=== PATIENT | female | born 1965 | race Caucasian/White ===

== ENCOUNTER 2017-07-25 09:28 | Observation (INO) ==
[2017-07-25] MEDS ORDERED: MIDAZOLAM 2mg/2ml INJECTION IVP ONE (09:52)
[2017-07-25] MEDS ORDERED: FentaNYL 100 MCG/2 ML INJECTION IVP ONE (09:52)
[2017-07-25 10:10] VITALS: BMI 33.2
[2017-07-25] MEDS ORDERED: SALINE FLUSH 10ml SYRINGE IV PRN (10:11)
--- NOTE | 2017-07-25 11:05 | XRay Report ---
Indication: afib PROCEDURE: XR chest 1V: Encounter: Initial Comparison: None. Findings: There is mild prominence the cardiac silhouette that is probably situated by the AP portable technique. There is moderate overlying EKG lead artifact. The lungs are clear. There is no focal opacity to suggest atelectasis or pneumonia. No mediastinal or hilar adenopathy. No pleural effusion. There is no significant tortuosity of the descending thoracic aorta. There is no significant degenerative changes of the thoracic spine. IMPRESSION: No acute process. .
[2017-07-25] MEDS ORDERED: SALINE FLUSH 10ml SYRINGE ONE (12:22)
[2017-07-25] MEDS ORDERED: FLECAINIDE 100 MG TABLET PO ONE (18:00)
[2017-07-25] MEDS: RIVAROXABAN 20 MG TABLET PO SCH (18:45)
[2017-07-25] MEDS: NS 1,000 ML IV SCH (23:48)
[2017-07-26] MEDS: ONDANSETRON 4 MG/2 ML INJECTION IVP PRN ×2 (00:10→08:26)
[2017-07-26] MEDS ORDERED: ZOLPIDEM 5 MG TABLET PO PRN (00:52)
[2017-07-26] MEDS ORDERED: ACETAMINOPHEN 325 MG TABLET PO PRN (00:53)
[2017-07-26] MEDS: NS 1,000 ML IV SCH ×3 (01:03→11:36)
[2017-07-26] MEDS ORDERED: RIVAROXABAN 20 MG TABLET PO SCH (09:00)
[2017-07-26] MEDS ORDERED: FLECAINIDE 50 MG TABLET PO SCH (09:00)
--- NOTE | 2017-07-26 09:47 | Transesophageal Echocardiogram ---
DATE OF PROCEDURE July 25, 2017 The patient is a 51-year-old lady who was admitted with symptomatic atrial fibrillation and was referred for further evaluation by transesophageal echocardiogram to rule out intracardiac thrombus or mass prior to cardioversion. Informed consent was obtained after explaining the procedure and the potential risks to the patient who agreed to proceed with the procedure. PROCEDURE 1. Transesophageal echocardiogram. Conscious sedation was performed using Versed and fentanyl. Cetacaine spray was used for pharyngeal anesthesia. Probe was advanced into the esophagus and stomach and images were obtained in multiple planes. Left atrium is normal. Left ventricular end-diastolic dimension is normal. Left ventricular wall thickness is normal. LV systolic function is normal with ejection fraction of about 65%. There is no thrombus in left atrium, left atrial appendage or left ventricle. Right atrium and right ventricle are normal. Mitral valve is morphologically normal with [id number] mitral regurgitation. Aortic valve is a trileaflet structure with no stenosis or insufficiency. Tricuspid valve is morphologically normal with [id number] tricuspid regurgitation. Pulmonary valve appears to be normal. There is no pericardial effusion. Agitated saline was injected which showed no evidence of [id number]-fg-[id number] shunt. Descending thoracic aorta appears to be free of atherosclerosis. IMPRESSION 1. Normal LV systolic function with ejection fraction of about 65%. 2. No intracardiac thrombus or mass. 3. Zdob-jl-wwnitakj mitral regurgitation. 4. Xran-[id number]-pundtybn tricuspid regurgitation. After reviewing the images we decided to proceed with cardioversion. Anterior- posterior Zoll pads were applied. 360 joules of energy was delivered in synchronized manner and patient converted from atrial fibrillation to sinus rhythm. She tolerated the procedure well with no complications. IMPRESSION 1. Successful DC cardioversion of atrial fibrillation into sinus rhythm. PLAN Will start her on antiarrhythmics to maintain sinus and continue anticoagulation. [facility]
[2017-07-26] MEDS: RIVAROXABAN 20 MG TABLET PO SCH (12:24)
[2017-07-26 16:27] VITALS: BP 109/61; PULSE 83; RESP 16; TEMP 98.1; O2SAT 92
== END 2017-07-26 17:52 | disposition home or self-care (01) ==
LOC: SRG
PROVIDERS: ADMIT Internal Medicine Cardiovascular Disease; ATTEND Internal Medicine Cardiovascular Disease